=== PATIENT | female | born 1965 ===

== ENCOUNTER 2017-10-22 13:22 | Emergency (ER) | payer OTHER ==
[2017-10-22 13:47] VITALS: BP 114/66; PULSE 82; RESP 20; TEMP 97.8; O2SAT 99
--- NOTE | 2017-10-22 14:05 | ED PDOC ---
HPI: Female Pain Time Seen by Provider: 10/22/17 13:29 Chief Complaint (Nursing): Female Genitourinary Chief Complaint (Provider): Female Genitourinary History Per: Patient History/Exam Limitations: no limitations Onset/Duration Of Symptoms: Days (x3) Current Symptoms Are (Timing): Still Present Additional Complaint(s): 51 year old female presents to the ED for evaluation of dysuria, frequency, and urgency onset three days ago sometimes associated with intermittent frontal headaches rated a 3/10, and as of two days ago, mild lower abdominal pain. Patient states she has been taking over the counter urinary supplements that relieve the dysuria, which she took this morning, but states she has not taken Ibuprofen since yesterday at 16:00. Otherwise, (-) fever, (-) chills, (-) nausea , (-) vomiting, (-) hematuria, (-) chest pain, (-) shortness of breath, (-) flank pain. Patient denies a history of urinary tract infections. LNMP: 2 years ago. PMD: none provided Past Medical History Reviewed: Historical Data, Nursing Documentation, Vital Signs Vital Signs: Last Vital Signs Temp 97.8 F 10/22/17 13:45 Pulse 82 10/22/17 13:45 Resp 20 10/22/17 13:45 BP 114/66 10/22/17 13:45 Pulse Ox 99 10/22/17 13:45 - Medical History PMH: No Chronic Diseases - Surgical History Surgical History: Cholecystectomy - Family History Family History: States: Unknown Family Hx - Social History Current smoker - smoking cessation education provided: No Alcohol: None Drugs: Denies - Home Medications Home Medications: Ambulatory Orders Medication Instructions Recorded Nitrofurantoin Macrocrystals 100 mg PO BID #14 cap 10/22/17 [Macrobid] Phenazopyridine [Pyridium] 200 mg PO BID PRN #4 tab 10/22/17 - Allergies Allergies/Adverse Reactions: Allergies Allergy/AdvReac Type Severity Reaction Status Date / Time No Known Allergies Allergy Verified 10/22/17 13:47 Review of Systems ROS Statement: Except As Marked, All Systems Reviewed And Found Negative Constitutional: Negative for: Fever, Chills Cardiovascular: Negative for: Chest Pain Respiratory: Negative for: Shortness of Breath Gastrointestinal: Positive for: Abdominal Pain (mild lower). Negative for: Nausea, Vomiting Genitourinary Female: Positive for: Dysuria, Frequency (and urgency). Negative for: Hematuria Musculoskeletal: Negative for: Other (flank pain) Neurological: Positive for: Headache (frontal) Physical Exam - Reviewed Nursing Documentation Reviewed: Yes Vital Signs Reviewed: Yes - Physical Exam Comments: GENERAL APPEARANCE: Patient is awake, alert, oriented x 3, in no acute distress. SKIN: Warm, dry; (-) cyanosis. EYES: (-) conjunctival pallor. ENMT: Mucous membranes are moist. Airway patent: (-) stridor. NECK: Supple, FROM (-) tenderness, (-) stiffness, (-) lymphadenopathy. CHEST AND RESPIRATORY: (-) wheezing; (-) rales, (-) rhonchi, (-) rub; breath sounds equal bilaterally. Respirations even and nonlabored. HEART AND CARDIOVASCULAR: (-) irregularity; (-) murmur, (-) gallop. ABDOMEN AND GI: Soft; (+) suprapubic tenderness (-) distention (-) guarding (- ) CVA tenderness. BACK: (-) midline tenderness. EXTREMITIES: (-) deformity, (-) edema. NEURO AND PSYCH: Mental status as above; (-) focal findings. Gait steady, speech clear. (-) facial asymmetry - ECG O2 Sat by Pulse Oximetry: 99 (RA) Pulse Ox Interpretation: Normal Medical Decision Making Medical Decision Making: Time: 1350 Initial Impression: urinary tract infection Initial Plan: --Tylenol 650 mg PO --Urine culture --Urinalysis --Re-evaluation 1505 Urinalysis reviewed, (+) nitrates. Macrobid 100mg PO ordered. 1555 On re-evaluation, patient reports improvement of symptoms. On exam, patient remains AAOx3, in no acute distress. On exam, neck is supple, lungs CTA, cardiac RRR, abdomen is soft and non-distended, neuro exam shows no focal findings. VSS, stable for discharge. Diagnostic results d/w the patient in great detail. Dx of urinary frequency, dysuria, UTI; headache d/w the patient. Based on history, exam and diagnostic results plan will be for discharge and outpatient follow up. Advised to follow up with primary care physician/clinic in 1-2 days without fail. Advised to take medication as prescribed. Return to the emergency room at any time for any new or worsening symptoms. Patient states she fully agrees with and understands discharge instructions. States that she agrees with the plan and disposition. Verbalized and repeated discharge instructions and plan. I have given the patient opportunity to ask any additional questions. Scribe Attestation: Documented by Daria Ortiz, acting as a scribe for Arlette Chauhan PA-C. Provider Scribe Attestation: All medical record entries made by the Scribe were at my direction and personally dictated by me. I have reviewed the chart and agree that the record accurately reflects my personal performance of the history, physical exam, medical decision making, and the department course for this patient. I have also personally directed, reviewed, and agree with the discharge instructions and disposition. Disposition - Clinical Impression Clinical Impression: Urinary tract infection, Urinary frequency, Headache - Patient ED Disposition Is Patient to be Admitted: No Counseled Patient/Family Regarding: Studies Performed, Diagnosis, Need For Followup, Rx Given - Disposition Referrals: FAMILY PROVIDER,NO [Primary Care Provider] - formerly [facility] [Outside] Disposition: Routine/Home Disposition Time: 15:56 Condition: STABLE Additional Instructions: FOLLOW UP WITH PMD/CLINIC IN 1-2 DAYS WITHOUT FAIL. RETURN TO ED WITH ANY NEW OR WORSENING SYMPTOMS. TAKE MEDICATION PRESCRIBED UNTIL COMPLETE FOR URINARY INFECTION. TAKE TYLENOL OR IBUPROFEN NEEDED FOR HEADACHE. Prescriptions: Nitrofurantoin Macrocrystals [Macrobid] 100 mg PO BID #14 cap Phenazopyridine [Pyridium] 200 mg PO BID PRN #4 tab PRN Reason: URINARY DISCOMFORT Instructions: Headache, Adult, Urinary Tract Infection, Adult (DC) Forms: [employer] (Ukrainian) Print Language: VIETNAMESE - POA Present On Arrival: None Results - Lab Results Lab Results: 10/22/17 14:10 Urine Color Gita Urine Clarity Clear Urine pH 7.0 Ur Specific Max 1.006 Urine Protein Negative Urine Glucose (UA) Neg Urine Ketones Negative Urine Blood Negative Urine Nitrate Positive H Urine Bilirubin Negative Urine Urobilinogen 2.0 H Ur Leukocyte Esterase Neg Urine RBC (Auto) < 1 Urine Microscopic WBC < 1 Ur Squamous Epith Cells < 1 Urine Bacteria Mod H
[2017-10-22 14:55] LABS: SQUAMOUS EPITHIAL < 1 /hpf (0-5); URINE BILIRUBIN NEGATIVE (NEGATIVE); URINE BLOOD NEGATIVE (NEGATIVE); URINE CLARITY CLEAR (Clear); URINE COLOR AMBER (YELLOW); URINE GLUCOSE (UA) NEG (Normal); URINE LEUKOCYTE ESTERASE NEG Leu/uL (Negative); URINE PROTEIN NEGATIVE (NEGATIVE)
[2017-10-22 15:05] LABS: URINE BACTERIA MOD (<OCC)
== END 2017-10-22 16:30 | disposition home or self-care (01) ==
LOC: H.ER 13:22
DX: N39.0 Urinary tract infection, site not specified (principal); R51 Headache; R35.0 Frequency of micturition